=== PATIENT | male | born 1985 | race Caucasian/White ===

== ENCOUNTER 2017-03-04 18:57 | Inpatient (IN) | payer BC ==
[~2017-03-04] VITALS: Ht 193 cm; Wt 79.5 kg
[~2017-03-04 18:57] MED LIST: ANTI-FUNGAL12 TOP; ATENOLOL25 MG PO; LEXAPRO10 MG PO; XANAX0.25 MG PO
--- NOTE | 2017-03-04 18:57 | NUR ---
PT STRAIGHT BACK TO ROOM 13 AND TRIAGED.
[2017-03-04 19:37] LABS: HEMATOCRIT 47.3 % (39.0-50.0); HEMOGLOBIN 17.6 g/dl (14.0-18.0); IMMATURE GRANULOCYTES 0.5 % (0.0-1.0); MEAN CELL VOLUME 84.3 fL CALC (80.0-100.0); MEAN CORPUSCULAR HGB 31.4 pG CALC (26.0-32.0); MEAN CORPUSCULAR HGB CONC 37.2 g/L CALC (32.0-36.0); NEUT# 12.56 thou/uL (1.82-7.42); RED BLOOD COUNT 5.61 mill/uL (4.70-6.10)
--- NOTE | 2017-03-04 19:53 | NUR ---
IVF COMPLETED. PWD. NAD. MOTHER REMAINS AT BEDSIDE.
[2017-03-04 19:54] LABS: BILIRUBIN, TOTAL 0.9 mg/dL (0.0-1.4); CALCIUM 12.4 mg/dL (8.4-10.2); CREATININE 2.3 mg/dL (0.7-1.3); TOTAL PROTEIN 10.6 g/dL (6.3-8.2)
[2017-03-04 20:10] LABS: ALBUMIN 6.4 g/dL (3.2-5.0)
[2017-03-04 20:51] LABS: CPK 161 u/l (52-200)
[2017-03-04 21:03] LABS: MYOGLOBIN 620 ng/mL (0 - 121)
--- NOTE | 2017-03-04 21:05 | NUR ---
LAB CALLED WITH MYOGLOBIN OF 620. NOTIFIED.
--- NOTE | 2017-03-04 21:44 | NUR ---
NABILA GIVEN REPORT. PT TO FLOOR.
--- NOTE | 2017-03-04 21:50 | NUR ---
PT ARRIVED TO UNIT VIA STRETCHER WITH ER STAFF. MOTHER AT BEDSIDE. AMBULATED TO BED INDEPENDENTLY WITH SUPERVISION. ALERT AND ORIENTED. C/O GENERALIZED CRAMPING, MOSTLY TO LEGS. RESPIRATIONS EVEN AND UNLABORED. ORIENTED TO ROOM AND CALL LIGHT SYSTEM. ASSESSMENT COMPLETE AT THIS TIME. IV FLUIDS INITIATED. GIRLFRIEND TO STAY THE NIGHT WITH PT. SAFETY MEASURES IN PLACE. CALL LIGHT WITHIN REACH.
[2017-03-04 22:10] VITALS: BP 125/75
[2017-03-04 22:28] LABS: ALBUMIN 4.6 g/dL (3.2-5.0); ALKALINE PHOSPHATASE 81 u/l (38-126); BILIRUBIN, TOTAL 0.7 mg/dL (0.0-1.4); BUN 19 mg/dL (9-20); BUN/CREATININE RATIO 14 (12-20 (CALC)); CARBON DIOXIDE 25 mmol/l (22-30); CREATININE 1.4 mg/dL (0.7-1.3); GFR 60 ML/MIN (>=60 (CALC)); GFR FOR AFR.AMER. > 60 ML/MIN (>=60 (CALC)); GLUCOSE 135 mg/dL (75-110); POTASSIUM 4.2 mmol/l (3.5-5.1); SGOT/AST 30 u/l (17-59); SGPT/ALT 38 u/l (21-72); SODIUM 134 mmol/l (137-146); TOTAL PROTEIN 7.2 g/dL (6.3-8.2)
--- NOTE | 2017-03-04 22:30 | NUR ---
PT INFORMED OF ORDER TO INSERT SANDOVAL CATHETER. VOIDED 600 ML OF CLEAR YELLOW URINE IN URINAL. WILL CONTINUE TO MONITOR AND DOCUMENT THAT PT IS VOIDING IN ADEQUATE AMOUNTS BEFORE INSERTING SANDOVAL.
[2017-03-04 22:31] LABS: ANION GAP 16 (6-22 (CALC)); CALCIUM 9.3 mg/dL (8.4-10.2); CHLORIDE 97 mmol/l (95-108)
[2017-03-05 00:44] LABS: URINE BILIRUBIN - DIPSTICK NEGATIVE (NEGATIVE); URINE BLOOD DIPSTICK NEGATIVE (NEGATIVE); URINE CLARITY CLEAR; URINE COLOR YELLOW; URINE GLUCOSE - DIPSTICK NEGATIVE (NEGATIVE); URINE KETONE TRACE mg/dL (NEGATIVE); URINE LEUK ESTERASE NEGATIVE (NEGATIVE); URINE NITRITE - DIPSTICK NEGATIVE (Negative); URINE PH 5.5 (4.5-8.0); URINE PROTEIN - DIPSTICK NEGATIVE (NEG-TRACE); URINE SPECIFIC GRAVITY <=1.005; URINE UROBILINOGEN - DIPSTICK 0.2 E.U./dL (0.2)
--- NOTE | 2017-03-05 00:50 | NUR ---
PT ASLEEP AT THIS TIME. NO SIGNS OF DISTRESS NOTED. RESPIRATIOSN EVEN AND UNLABORED. FRIEND AT BEDSIDE. IV FLUIDS INFUSING WITHOUT DIFFICUTLY. VOIDING IN URINAL. SAFETY MEASURES IN PLACE. CALL LIGHT WITHIN REACH.
[2017-03-05 00:52] LABS: BARBITURATES NEGATIVE (NEGATIVE); COCAINE NEGATIVE (NEGATIVE); METHADONE NEGATIVE (NEGATIVE); OXCYCODONE NEGATIVE (NEGATIVE); TETRAHYDROCANNABIONOL NEGATIVE (NEGATIVE); TRICYLIC ANTIDEPRESSANTS NEGATIVE (NEGATIVE)
--- NOTE | 2017-03-05 04:02 | NUR ---
PT ASLEEP AT THIS TIME. NO SIGNS OF DISTRESS NOTED. RESPIRATIONS EVEN AND UNLABORED. NO CHANGES IN ASSESSMENT NOTED. SAFETY MEASURES IN PLACE. CALL LIGHT WITHIN REACH.
[2017-03-05 04:35] VITALS: BP 103/62
[2017-03-05 05:59] LABS: HEMATOCRIT 38.2 % (39.0-50.0); HEMOGLOBIN 13.6 g/dl (14.0-18.0); IMMATURE GRANULOCYTES 0.2 % (0.0-1.0); MEAN CELL VOLUME 86.8 fL CALC (80.0-100.0); MEAN CORPUSCULAR HGB 30.9 pG CALC (26.0-32.0); MEAN CORPUSCULAR HGB CONC 35.6 g/L CALC (32.0-36.0); NEUT# 3.07 thou/uL (1.82-7.42); RED BLOOD COUNT 4.4 mill/uL (4.70-6.10); RED CELL DISTRI WIDTH 12.3 % (11.5-15.5)
[2017-03-05 06:19] LABS: ALBUMIN 4.1 g/dL (3.2-5.0); ALKALINE PHOSPHATASE 75 u/l (38-126); ANION GAP 14 (6-22 (CALC)); BILIRUBIN, TOTAL 0.7 mg/dL (0.0-1.4); BUN 17 mg/dL (9-20); BUN/CREATININE RATIO 19 (12-20 (CALC)); CALCIUM 9.2 mg/dL (8.4-10.2); CARBON DIOXIDE 25 mmol/l (22-30); CHLORIDE 102 mmol/l (95-108); CREATININE 0.9 mg/dL (0.7-1.3); GFR > 60 ML/MIN (>=60 (CALC)); GFR FOR AFR.AMER. > 60 ML/MIN (>=60 (CALC)); GLUCOSE 97 mg/dL (75-110); POTASSIUM 3.7 mmol/l (3.5-5.1); SGOT/AST 27 u/l (17-59); SGPT/ALT 32 u/l (21-72); SODIUM 138 mmol/l (137-146); TOTAL PROTEIN 6.6 g/dL (6.3-8.2)
--- NOTE | 2017-03-05 07:10 | NUR ---
REPORT RECIEVED FROM [facility]; PT RESTING IN BED WITH EYES CLOSED; PT EASLIY AROUSED BY VERBAL STIMULUS; PT C/O CRAMPING IN LOWER LEGS BUT DENIES ANY NEED FOR PAIN MEDICATION AT THIS TIME; PT DENIES ANY OTHER NEEDS AT THIS TIME; CALL LIGHT WITHIN REACH; WILL CONTINUE TO MONITOR
[2017-03-05 09:52] VITALS: BP 113/70
--- NOTE | 2017-03-05 10:05 | NUR ---
Discharge instructions given. Patient verbalizes understanding of same. Discharged in stable condition via Ambulatory to Home with family. All belongings sent with pt.
== END 2017-03-05 10:05 | disposition home or self-care (01) | DRG 683 ==
LOC: ENPENDDIS → ED 18:57 → ED-I 20:30 → ED 21:00 → MS2 21:01
PROVIDERS: Emergency Medicine; ADMIT Internal Medicine; ATTEND Internal Medicine
DX: N17.9 Acute kidney failure, unspecified (principal); E87.1 Hypo-osmolality and hyponatremia; M62.82 Rhabdomyolysis; E87.8 Other disorders of electrolyte and fluid balance, not elsewhere classified; E86.0 Dehydration; F41.8 Other specified anxiety disorders; F17.290 Nicotine dependence, other tobacco product, uncomplicated

== ENCOUNTER 2020-01-28 16:00 | Emergency (ER) | payer BC | END 2020-01-28 16:50 | disposition left against medical advice (07) | DRG 951 | LOC: ED 16:00 → LWOBS 16:50 | DX: Z91.19 Patient's noncompliance with other medical treatment and regimen (principal) ==

== ENCOUNTER 2022-06-27 06:47 | Day surgery (SDC) | payer BC ==
[~2022-06-27] VITALS: Ht 190.5 cm; Wt 77.1 kg
[~2022-06-27 06:47] MED LIST changes: +AMITRIP PO; +CDP PO; +INDERAL 20MG TA20 MG PO; +IVERMECTIN3 MG PO; +OMEPRAZOLE20 MG PO; +PREDNISONE10 MG PO
[2022-06-27 08:59] VITALS: BP 114/84
== END 2022-06-27 08:47 | disposition home or self-care (01) | DRG 378 ==
LOC: ORM 06:47
PROVIDERS: ATTEND Surgery
PROC: 0DB48ZX Excision of Esophagogastric Junction, Via Natural or Artificial Opening Endoscopic, Diagnostic (ICD-10-PCS; principal; 2022-06-27)
PROC: 0DB78ZX Excision of Stomach, Pylorus, Via Natural or Artificial Opening Endoscopic, Diagnostic (ICD-10-PCS; 2022-06-27)
PROC: 0JPT32Z Removal of Monitoring Device from Trunk Subcutaneous Tissue and Fascia, Percutaneous Approach (ICD-10-PCS; 2022-06-27)
DX: K29.71 Gastritis, unspecified, with bleeding (principal); T82.847A Pain due to cardiac prosthetic devices, implants and grafts, initial encounter; I10 Essential (primary) hypertension; Y83.1 Surgical operation with implant of artificial internal device as the cause of abnormal reaction of the patient, or of later complication, without mention of misadventure at the time of the procedure